=== PATIENT | female | born 1955 ===

== ENCOUNTER 2017-06-25 19:12 | Emergency (ER) | payer SELFPAY ==
[2017-06-25 19:32] VITALS: BP 138/82; PULSE 76; RESP 16; TEMP 98; O2SAT 99
--- NOTE | 2017-06-25 20:45 | ED PDOC ---
HPI: General Adult Time Seen by Provider: 06/25/17 19:49 Chief Complaint (Nursing): Upper Extremity Problem/Injury Additional Complaint(s): Uzma Gillis is a 62 year old female that presents to the ED with a chief complaint of right hand pain that she has been experiencing for the past three weeks and right foot pain that she has been experiencing for the past two weeks. patient reports that her pain worsens while she is working. Past Medical History Reviewed: Historical Data, Nursing Documentation, Vital Signs Vital Signs: Last Vital Signs Temp 98.0 F 06/25/17 19:29 Pulse 76 06/25/17 19:29 Resp 16 06/25/17 19:29 BP 138/82 06/25/17 19:29 Pulse Ox 99 06/25/17 20:52 - Surgical History Surgical History: Cholecystectomy Denies: Appendectomy - Family History Family History: States: Unknown Family Hx - Home Medications Home Medications: Ambulatory Orders Medication Instructions Recorded Cephalexin [Keflex] 500 mg PO TID #21 cap 04/11/15 Naproxen 500 mg PO BID #30 tab 06/23/15 Naproxen 500 mg PO Q12H PRN #20 ect 06/25/17 - Allergies Allergies/Adverse Reactions: Allergies Allergy/AdvReac Type Severity Reaction Status Date / Time No Known Allergies Allergy Verified 04/11/15 16:52 Review of Systems Musculoskeletal: Positive for: Hand Pain (Right hand), Foot Pain (Right foot) Physical Exam - Reviewed Nursing Documentation Reviewed: Yes Vital Signs Reviewed: Yes - Physical Exam Appears: Positive for: Non-toxic, No Acute Distress Head Exam: Positive for: ATRAUMATIC Skin: Positive for: Normal Color, Warm Eye Exam: Positive for: Normal appearance, EOMI, PERRL Pulses-Dorsalis Pedis (L): 2+ Pulses-Dorsalis Pedis (R): 2+ Pulses-Post. Tibialis (L): 2+ Pulses-Post. Tibialis (R): 2+ Pulses-Radial (L): 2+ Pulses-Radial (R): 2+ Extremity: Positive for: Normal ROM. Negative for: Tenderness Neurologic/Psych: Positive for: Alert, Oriented. Negative for: Motor/Sensory Deficits - ECG O2 Sat by Pulse Oximetry: 99 (RA) Pulse Ox Interpretation: Normal Medical Decision Making Medical Decision Making: Impression: Right Hand and Right Foot Pain Plan: * X-Ray Right Hand * X-Ray Right Foot Patient will be given Rx for Naproxen secondary to pain. Patient has no additional complaints and is stable for discharge home. Clinical Impression: Arthralgia Scribe Attestation: Documented by Jennifer Morley, acting as a scribe for Katarzyna Sullivan PA-C. Provider Scribe Attestation: All medical record entries made by the Scribe were at my direction and personally dictated by me. I have reviewed the chart and agree that the record accurately reflects my personal performance of the history, physical exam, medical decision making, and the department course for this patient. I have also personally directed, reviewed, and agree with the discharge instructions and disposition. Disposition - Clinical Impression Clinical Impression: Arthralgia - Patient ED Disposition Is Patient to be Admitted: No Counseled Patient/Family Regarding: Diagnosis, Need For Followup, Rx Given - Disposition Disposition: Routine/Home Disposition Time: 20:50 Condition: GOOD Prescriptions: Naproxen 500 mg PO Q12H PRN #20 ect PRN Reason: Pain, Severe (8-10) Instructions: Arthralgia (ED) Forms: [place] ([place]), [facility] ED School/Work Excuse
--- NOTE | 2017-06-26 12:43 | RAD ---
PROCEDURE: Right Hand Radiographs. HISTORY: thumb and index finger pain, increased with movement. COMPARISON: None. FINDINGS: BONES: No evidence of acute displaced fracture nor dislocation. The osseous structures intact. There are no cortical destructive changes. . Note is made of a small rounded well-circumscribed cystic focus within the ulnar aspect base middle phalanx 4th finger which could represent a tiny subchondral cyst or benign bone cyst. 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 There is a small calcific like density on within the soft tissues just distal to the ulnar styloid. Rule out prior old unfused fracture deformity of the ulna styloid or calcification of the triangular fibrocartilage. Followup studies such as MRI could be performed if further evaluation is required. SOFT TISSUES: Normal. OTHER FINDINGS: None. IMPRESSION: No evidence of acute displaced fracture nor dislocation. Mild DJD as described. Questionable old unfused fracture deformity of the ulna styloid or possible calcification within the triangular fibrocartilage.
--- NOTE | 2017-06-26 12:45 | RAD ---
PROCEDURE: Right Foot Radiographs. HISTORY: pain COMPARISON: None. FINDINGS: BONES: No evidence of acute displaced fracture nor dislocation. . There is a small plantar surface calcaneal enthesophyte. JOINTS: Minor degenerative changes 1st MTP joint SOFT TISSUES: Normal. OTHER FINDINGS: None. IMPRESSION: No evidence of acute displaced fracture nor dislocation. . Small calcaneal enthesophyte. If symptoms persist or occult fracture suspected clinically consider repeat radiographs in 5-10 days as most fractures should become radiographically evident in this timeframe.
== END 2017-06-25 21:05 | disposition home or self-care (01) ==
LOC: H.ER 19:12
DX: M25.50 Pain in unspecified joint (principal)